=== PATIENT | female | born 2000 | race Caucasian/White ===

== ENCOUNTER 2020-09-07 12:39 | Emergency (ER) | payer BC ==
[~2020-09-07] VITALS: Ht 157.5 cm; Wt 53.0 kg
--- NOTE | 2020-09-07 13:28 | NUR ---
STARTED CIPRO ON SUNDAY FOR UTI, HAS NOT NOTICED IMPROVEMENT AND HAS N/V, REPORTS ONE EPISODE OF EMESIS WITH BLOOD TODAY. PLACED VITALS MONITORS, CALL LIGHT WITHIN PT'S REACH.
[2020-09-07] MEDS ORDERED: CIPR250T27 PO (13:31)
[2020-09-07] MEDS ORDERED: HYDROcodone/APAP 5/325 TABLET PO ONE (14:00)
[2020-09-07] MEDS ORDERED: CEFTRIAXONE 250 MG IM ONE (14:00)
[2020-09-07] MEDS ORDERED: PHENAZOPYRIDINE 200 MG TABLET PO ONE (14:00)
[2020-09-07] MEDS ORDERED: PHENAZOPYRIDINE 200 MG TABLET ONE (14:18)
[2020-09-07] MEDS ORDERED: CEFTRIAXONE 250 MG ONE (14:18)
[2020-09-07] MEDS ORDERED: HYDROcodone/APAP 5/325 TABLET ONE (14:18)
[2020-09-07 14:52] LABS: MICROSCOPIC INDICATED
[2020-09-07 15:28] VITALS: BP 126/76
== END 2020-09-07 15:55 | disposition home or self-care (01) ==
LOC: ED 15:44
DX: N30.00 Acute cystitis without hematuria (principal); R11.2 Nausea with vomiting, unspecified; R30.0 Dysuria
CPT/HCPCS: 81001; 87086; 96372; 99283; J0696